=== PATIENT | female | born 1945 | race Caucasian/White ===

== ENCOUNTER 2024-03-11 15:39 | Emergency (ER) | payer MEDICARE, SELFPAY ==
[2024-03-11 15:50] VITALS: BP 118/74; BMI 30.7
[2024-03-11 16:25] LABS: % Basophils 0.1 % (0-2); % Eosinophils 0.3 % (0-6); % Immature Granulocytes 0.6 % (0-0.5); % Lymphocytes 17.4 % (20.5-51.1); % Monocytes 6.3 % (1.7-9.3); % Neutrophils 75.3 % (42.2-75.2); Absolute Lymphocytes 1.2 10^3/uL (1.2-3.4); Absolute Monocytes 0.4 10^3/uL (0.1-0.6); Absolute Neutrophils 5.1 10^3/uL (1.4-6.5); Hematocrit 37.3 % (37.0-47.0); Hemoglobin 12.7 g/dL (12.0-16.0); Mean Corpuscular Hgb 28.9 pg (27.0-31.0); Mean Platelet Volume 9.1 fL (7.4-10.4); Nucleated Red Blood Cells % 0 %; Platelet Count 247 10^3/uL (130-400); Red Blood Cell Count 4.39 10^6/uL (4.20-5.40); White Blood Cell Count 6.8 10^3/uL (4.8-10.8)
[2024-03-11 16:28] LABS: INR 1.06; PT 13.8 Sec (11.4-14.6)
[2024-03-11 16:31] LABS: ALT (SGPT) 20 U/L (0-35); AST (SGOT) 22 U/L (14-36); Albumin 4.3 g/dl (3.5-5.0); Alkaline Phosphatase 100 U/L (38-126); Blood Urea Nitrogen 24 mg/dl (7-17); Calcium 9.9 mg/dl (8.4-10.2); Carbon Dioxide 26 mmol/L (22-30); Chloride 105 mmol/L (98-107); Estimated Creatinine Clearance 49 ml/min; Glucose 104 mg/dl (70-99); Potassium 3.9 mmol/L (3.5-5.1); Sodium 137 mmol/L (135-145); Total Bilirubin 0.4 mg/dl (0.2-1.3); Total Protein 6.9 g/dl (6.3-8.2); eGFR 58.39
[2024-03-11 16:43] LABS: Troponin I < 0.012 ng/ml
--- NOTE | 2024-03-11 17:20 | ED.GENMED ---
History of Present Illness
General
Chief Complaint: Eye Problems
Source: patient
Time Seen by Provider: 03/11/24 16:49
Travel History
Have you had any contact with someone who has COVID-19?: No
Do you have any symptoms of coronavirus? Fever > 100 degrees, chills, cough, shortness of breath, sore throat, loss of taste or smell, muscle aches, or headache?: No
History of Present Illness
History of Present Illness:
78-year-old female with past medical history of migraines, CAD status post coronary stenting in August 2023, presenting to the emergency department for evaluation of visual disturbance that started while driving today around noon describing a
visual floater/haziness to both eyes that has since been resolved. Patient states that over the last week she has been dealing with sinus congestion, itchy/watery eyes, chest congestion and intermittent dry cough. Patient's biggest concern was the
visual disturbance prompting her to go to [id number] urgent care where she was found to be hypertensive. They did an EKG/COVID and flu testing and advised patient to come to the ER. On arrival to the emergency department patient states her
blood pressure was much improved although did not take anything for her blood pressure. She states the visual disturbance seems to be resolved but still has this shortness of breath sensation.
Past History
Past History
ED Past Medical History: CAD and Other (Migraines)
ED Past Surgical History: Cardiac, Orthopedic and Other
Social History
Tobacco: Non-smoker
Alcohol: None
Drug: None
Personal:
Living: alone
Review of Systems
Review of Systems
All Other Systems: ROS reviewed and negative except as documented in HPI and ROS
Phy Exam
Physical Exam
Physical Exam:
GENERAL: Alert , in no apparent distress
EYE: Clear conjunctiva
Visual Acuity: Right 20/50, Left 20/30, Both 20/30
NECK: Supple
ENT: o/p clr, mmm.
CARDIAC: Regular rate and rhythm, systolic murmur left sternal border .
LUNGS: Clear breath sounds bilaterally, no acute respiratory distress, no wheezes/rales/rhonchi
ABDOMEN: Soft, without focal tenderness, no r/g, no cvat
NEUROLOGICAL: Alert and oriented x 3
SKIN: Warm and dry, skin intact.
MUSCULOSKELETAL: well perfused.
PSYCH: Normal and appropriate interaction.
Scores
Heart Failure Risk
Heart Failure Risk Score: Not Applicable
Heart Score for Chest Pain Patients
STEMI patient?: Not applicable
Withdrawal Assessment of Alcohol
Withdrawal Assessment Completed?: Not applicable
Course
Orders/Labs/Results
Orders:
Orders
03/11/24 15:55
Electrocardiogram (*1) Urgent
Reason for Study: Chest Pain
EKG- Treatment ONCE
CXR2 [CR Chest - 2 Views ] Urgent
Comment:
Reason For Exam: pressue
03/11/24 16:05
Complete Blood Count/With Diff Urgent
Comprehensive Metabolic Panel Urgent
Prothrombin Time Urgent
Troponin I Urgent
03/11/24 16:50
Visual Acuity- Treatment ONCE
Abnormal Lab Results
03/11/24
16:05
Immature Gran % 0.6 H %
(0-0.5)
Neutrophils % 75.3 H %
(42.2-75.2)
Lymphocytes % 17.4 L %
(20.5-51.1)
BUN 24 H mg/dl
(7-17)
Glucose 104 H mg/dl
(70-99)
03/11/24 16:05
03/11/24 16:05
Vital Signs
Initial and Last Documented VS:
Initial Vital Signs
Temp Pulse Resp BP Pulse Ox
98.5 F 75 20 118/74 98
03/11/24 15:50 03/11/24 15:50 03/11/24 15:50 03/11/24 15:50 03/11/24 15:50
Last Documented Vital Signs
Temp Pulse Resp BP Pulse Ox
98.5 F 78 13 179/77 98
03/11/24 15:50 03/11/24 18:57 03/11/24 18:57 03/11/24 18:57 03/11/24 18:57
MDM/Problems Addressed
Differential Diagnosis Includes:
Hypertensive urgency, less concern for CVA given bilateral nature of symptoms as well as other symptoms present with patient's history today, allergic rhinitis, cough variant asthma
MDM/Problems Addressed:
78-year-old female presenting to the emergency department [facility] after she was found to be significantly hypertensive. Multitude of concerns including eye tearing/watering but today patient states her vision seems a
little bit blurry but she is also having some sinus congestion, cough and shortness of breath. On arrival to the ER patient's blood pressure is normal and her vitals are otherwise unremarkable. Labs were initiated in triage and are also
unremarkable. Troponin is negative and EKG is nonischemic. Ultimately I have less suspicion for any emergent pathologies such as a hypertensive urgency or emergency or acute neurological complication. Due to patient's cough and her shortness of
breath will obtain chest x-ray. Anticipate discharge home following with close follow-up with primary care provider
*Radiology
Radiology exam reviewed: preliminary read by ED provider (Normal chest x-ray)
*Critical Care Note
Total Time (30-74mins, 75-104mins- exclusive of procedures): Not Applicable
Patient Management
Escalation/DeEscalation of care consider admission/obs:
Patient's labs and imaging are unremarkable. She notes symptoms are mostly resolved at this time although still states vision in both eyes still seems a little off. Blood pressure was rechecked and is elevated again. She will follow-up with her
primary care provider and keep a blood pressure log. Patient otherwise feels comfortable being discharged home. Aware of return precautions.
ED Attending Note
-
Portions of this chart may have been created with voice recognition software.� Occasional wrong word or��sound alike� substitutions may have occurred due to the inherent limitations of voice recognition software.
Discharge Plan
Departure
Patient Disposition: Home (Routine Discharge)
Date of Disposition: 03/11/24
Time of Disposition: 18:49
Patient with high blood pressure during this ER visit?: No
Discharge Problem:
Blurred vision, Shortness of breath
Instructions: Shortness of breath
Prescriptions:
No Action
venlafaxine 75 mg Capsule,Extended Release 24hr
225 mg PO DAILY
metoprolol succinate 50 mg Tablet Extended Release 24 Hr
50 mg PO HS
acetaminophen 500 mg Tablet
1,000 mg PO DAILY PRN (Reason: as needed)
montelukast 10 mg Tablet
10 mg PO HS
hydrochlorothiazide 25 mg Tablet
25 mg PO QPM
loratadine [Claritin] 10 mg Tablet
10 mg PO DAILY
amlodipine 5 mg Tablet
5 mg PO DAILY Qty: 90 5RF
nitroglycerin [nitroglycerin] 0.4 mg tablet, sublingual
0.4 mg sublingual [id number] PRN (Reason: chest pain) Qty: 25 5RF
Brilinta 90 mg Tablet
90 mg PO BID Qty: 60 11RF
Referrals:
Kimberlee Harman DO [Family Provider] -
Interventions
Interventions:
*Risk Screen - Suicide Last Done: 03/11/24 15:50
*General Assessment Last Done: 03/11/24 16:54
*Neglect/Abuse Screening Last Done: 03/11/24 15:50
ED- Fall Risk Assessment Last Done: 03/11/24 15:50
*ED COVID-19 Vaccine History Last Done: 03/11/24 16:54
Discharge Date and Time
Print Language: SAO TOMEAN
[2024-03-11 18:57] VITALS: BP 179/77
== END 2024-03-11 19:22 | disposition home or self-care (01) ==
LOC: EMR 15:39
PROVIDERS: Emergency Medicine; EMERGENCY PHYSICIAN Emergency Medicine; FAMILY PHYSICIAN Family Medicine
DX: H53.8 Other visual disturbances (principal); R06.02 Shortness of breath; I10 Essential (primary) hypertension; I25.10 Atherosclerotic heart disease of native coronary artery without angina pectoris
CPT/HCPCS: 99283; 71046; 80053; 84484; 85025; 85610; 93005

== ENCOUNTER 2025-06-15 00:29 | Emergency (ER) | payer MEDICARE, SELFPAY ==
[2025-06-15 00:32] VITALS: BP 166/77
[2025-06-15 00:41] VITALS: BP 166/77
[2025-06-15 00:44] VITALS: BMI 31.7
[2025-06-15 01:00] VITALS: BP 154/57
[2025-06-15] MEDS: PEPCID 20 MG IV (01:45)
[2025-06-15] MEDS: DECADRON 10 MG IV (01:59)
[2025-06-15 02:00] VITALS: BP 172/66
[2025-06-15 03:00] VITALS: BP 168/66
--- NOTE | 2025-06-15 03:30 | ED.GENMED ---
History of Present Illness
General
Chief Complaint: Allergic Reaction
Source: patient
Exam Limitations: none
Time Seen by Provider: 06/15/25 00:54
Nursing documentation reviewed up to this point in time: agreed with
History of Present Illness
History of Present Illness:
80-year-old female presenting to the emergency department today with concerns of scattered hives. She had food that was cooked at a [employer]. 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 She noticed
hives and felt short of breath she gave herself a dose of EpiPen and called EMS. EMS gave 50 of Benadryl en route. Symptoms seem to improve with time. Here she claims that she has had some recurrence of the hives here denies any significant
trouble swallowing or breathing no ongoing abdominal pain cramping no lightheadedness.
Past History
Past History
ED Past Medical History: CAD and Other (Migraines)
ED Past Surgical History: Cardiac, Orthopedic and Other
Social History
Tobacco: Non-smoker
Alcohol: None
Drug: None
Personal:
Living: alone
Review of Systems
Review of Systems
Allergies reviewed?: Yes
All Other Systems: ROS reviewed and negative except as documented in HPI and ROS
Phy Exam
Physical Exam
Physical Exam:
GENERAL: Alert , in no apparent distress
EYE: pupils equal and reactive
NECK: Supple, no significant adenopathy.
ENT: o/p clr, mmm.
CARDIAC: Regular rate and rhythm .
LUNGS: Clear breath sounds bilaterally, no acute respiratory distress, no wheezes/rales/rhonchi
ABDOMEN: Soft, without focal tenderness, no r/g, no cvat
NEUROLOGICAL: Alert and oriented, no focal neuro deficits
SKIN: Scattered hives mainly throughout the upper extremities. Warm and dry, skin intact.
MUSCULOSKELETAL: No edema, well perfused.
PSYCH: Normal and appropriate interaction.
Course
Orders/Labs/Results
Orders:
Orders
06/15/25 01:42
Dexamethasone Sod Phosphate [Decadron] 20 mg .ROUTE .STK-MED ONE
Famotidine [Pepcid] 20 mg .ROUTE .STK-MED ONE
06/15/25 01:45
Famotidine [Pepcid] 20 mg IV NOW STA
06/15/25 01:50
Dexamethasone Sod Phosphate [Decadron] 10 mg IV NOW STA
Vital Signs
Initial and Last Documented VS:
Initial Vital Signs
Temp Pulse Resp BP Pulse Ox
98.0 F 83 16 166/77 98
06/15/25 00:32 06/15/25 00:32 06/15/25 00:32 06/15/25 00:32 06/15/25 00:32
Last Documented Vital Signs
Temp Pulse Resp BP Pulse Ox
98.0 F 77 18 168/66 98
06/15/25 00:32 06/15/25 03:00 06/15/25 03:00 06/15/25 03:00 06/15/25 03:33
MDM/Problems Addressed
MDM/Problems Addressed:
80-year-old female presenting with concerns of allergic reaction eventually to shrimp. Gave herself an EpiPen prior to arrival also got IV Benadryl en route. Here if she does have ongoing hives but otherwise normal posterior pharynx no evidence of
membrane involvement clear lungs no abdominal pain no signs of anaphylaxis at this point. Was given further adjunctive treatment with steroid and famotidine. Patient observed here for multiple hours with significant improvement of symptoms.
Patient stable for outpatient management at this point. Return precautions given.
*Pulse Oximetry
SaO2: 98
Oxygen Mode of Delivery: Room air
Patient hypoxic: no (98)
*Critical Care Note
Total Time (30-74mins, 75-104mins- exclusive of procedures): Not Applicable
ED Attending Note
-
Portions of this chart may have been created with voice recognition software.� Occasional wrong word or��sound alike� substitutions may have occurred due to the inherent limitations of voice recognition software.
Discharge Plan
Departure
Patient Disposition: Home (Routine Discharge)
Date of Disposition: 06/15/25
Time of Disposition: 04:06
Patient with high blood pressure during this ER visit?: No
Condition: Good
Covid-19: Not Applicable
Discharge Problem:
Allergic reaction
Instructions: Hives (DC)
Prescriptions:
New
cetirizine [Zyrtec] 10 mg tablet
10 mg PO BID 4 Days Qty: 8 0RF
prednisone 20 mg tablet
40 mg PO DAILY 4 Days Qty: 8 0RF
famotidine 20 mg tablet
20 mg PO BID 4 Days Qty: 8 0RF
epinephrine [Auvi-Q] 0.3 mg/0.3 mL auto-injector
0.3 mg IM Q5-15M PRN (Reason: anaphylaxis) Qty: 2 0RF
No Action
venlafaxine 75 mg Capsule,Extended Release 24hr
225 mg PO DAILY
metoprolol succinate 50 mg Tablet Extended Release 24 Hr
50 mg PO HS
acetaminophen 500 mg Tablet
1,000 mg PO DAILY PRN (Reason: as needed)
montelukast 10 mg Tablet
10 mg PO HS
hydrochlorothiazide 25 mg Tablet
25 mg PO QPM
loratadine [Claritin] 10 mg Tablet
10 mg PO DAILY
amlodipine 5 mg Tablet
5 mg PO DAILY Qty: 90 5RF
nitroglycerin [nitroglycerin] 0.4 mg tablet, sublingual
0.4 mg sublingual [id number] PRN (Reason: chest pain) Qty: 25 5RF
Brilinta 90 mg Tablet
90 mg PO BID Qty: 60 11RF
Referrals:
Kimberlee Harman DO [Family Provider]
Activity Restrictions/Additional Instructions:
You came to the emergency department today with concerns of allergic reaction. Here you had improving symptoms. Please take the prescribed additional medications for allergic reaction. Return for any worsening, new or concerning symptoms.
Interventions
Interventions:
*Risk Screen - Suicide Last Done: 06/15/25 00:32
*General Assessment Last Done: 06/15/25 00:32
*Neglect/Abuse Screening Last Done: 06/15/25 00:32
*ED- Fall Risk Assessment Last Done: 06/15/25 00:32
*ED COVID-19 Vaccine History Last Done: 06/15/25 00:32
ED- Cardiac Assessment Last Done: 06/15/25 00:44
ED- Pulmonary Assessment Last Done: 06/15/25 00:44
ED-Skin Assessment Last Done: 06/15/25 00:44
Discharge Date and Time
Print Language: [id number]
== END 2025-06-15 04:31 | disposition home or self-care (01) ==
LOC: EMR 00:29
PROVIDERS: EMERGENCY PHYSICIAN Emergency Medicine; FAMILY PHYSICIAN Family Medicine
DX: T78.1XXA Other adverse food reactions, not elsewhere classified, initial encounter (principal); L50.9 Urticaria, unspecified; X58.XXXA Exposure to other specified factors, initial encounter; Z91.013 Allergy to seafood
CPT/HCPCS: 96374; 96375; 99284

== ENCOUNTER → 2025-10-04 08:55 | Outpatient (REF) | payer MEDICARE, SELFPAY | LOC: HWRAD 08:55 | PROVIDERS: ATTENDING PHYSICIAN Surgery; FAMILY PHYSICIAN Family Medicine | DX: N28.1 Cyst of kidney, acquired (principal) | CPT/HCPCS: 74176 ==